=== PATIENT | female | born 1965 | race Caucasian/White ===

== ENCOUNTER 2024-09-18 17:29 | Observation (INO) | payer OTHER ==
[2024-09-18 18:54] LABS: EPI CELLS 3 /uL (0-25.1); HYALINE CASTS 0 /uL (0-3.1); URINE APPEARANCE CLEAR; URINE BACTERIA 13 /uL (0-1359); URINE BILIRUBIN NEGATIVE (NEGATIVE); URINE COLOR YELLOW; URINE GLUCOSE (UA) NEGATIVE (NEGATIVE); URINE KETONE NEGATIVE (NEGATIVE); URINE LEUK ESTERASE TRACE (NEGATIVE); URINE NITRITE NEGATIVE (NEGATIVE); URINE PROTEIN NEGATIVE (NEGATIVE); URINE RBC 7 /uL (0-23.9); URINE UROBILINOGEN 0.2 mg/dL (0.2-1.0); URINE WBC 6 /uL (0-25.8)
[2024-09-18 18:55] LABS: ABSOLUTE IMMATURE GRANULOCYTES 0.01 x10^3/uL (0.0-0.031); BASOPHILS # 0.03 x10^3/uL (0.01-0.08); RDW 13.0 % (12.3-16.6)
[2024-09-18 18:57] LABS: EOSINOPHIL % 1.2 % (0.7-5.8); EOSINOPHILS # 0.07 x10^3/uL (0.04-0.36); IMMATURE PLATELET FRACTION # 19.00 x10^3/uL; MCHC 31.6 g/dl (32.2-35.5); MEAN CELL VOLUME 93.5 fl (79.4-94.8); MEAN PLT VOLUME 11.7 fl (9.4-12.3); MONOCYTE # 0.45 x10^3/uL (0.24-0.86); MONOCYTE % 7.9 % (4.7-12.5)
[2024-09-18] MEDS: SODIUM CHLORIDE 0.9% 500 ML INFUS.BAG IV ONE (18:58)
[2024-09-18] MEDS ORDERED: ERTAPENEM SODIUM 1 GM VIAL ONE (18:59)
[2024-09-18 19:20] LABS: GLUCOSE,RANDOM 83.0 mg/dL (74-106); TOT PROT 7.7 g/dl (6.4-8.2)
[2024-09-18 19:21] LABS: CO2 27.0 mmol/L (21-32)
[2024-09-18 19:23] LABS: ALK PHOS 87.0 U/L (40-150)
[2024-09-18 19:25] LABS: CREATININE 0.79 mg/dL (0.55-1.3); SGOT/AST 29.0 U/L (5-34); SGPT/ALT 22.0 U/L (0-55)
[2024-09-18] MEDS: ERTAPENEM SODIUM 1 GM in SODIUM CHLORIDE 50 ML IVPB ONE (19:28)
[2024-09-18] MEDS ORDERED: KETOROLAC TROMETHAMINE 15 MG/ML VIAL IVPUSH PRN (20:25)
[2024-09-18] MEDS ORDERED: ONDANSETRON 4 MG/2 ML VIAL IVPUSH PRN (20:25)
[2024-09-18] MEDS: SODIUM CHLORIDE 1,000 ML IV SCH (21:45)
[2024-09-18 23:05] VITALS: BMI 25.8
[2024-09-19] MEDS: ENOXAPARIN NA (PORCINE) 40 MG/0.4 ML DISP.SYRIN SQ SCH (09:17)
[2024-09-19] MEDS: ERTAPENEM SODIUM 1 GM in SODIUM CHLORIDE 50 ML IVPB SCH (09:18)
[2024-09-19 09:24] LABS: MCHC 31.3 g/dl (32.2-35.5); MEAN CELL VOLUME 94.5 fl (79.4-94.8); MEAN PLT VOLUME 11.3 fl (9.4-12.3); RDW 13.1 % (12.3-16.6)
[2024-09-19 10:55] LABS: GLUCOSE,RANDOM 65.0 mg/dL (74-106)
[2024-09-19 10:56] LABS: TOT PROT 6.2 g/dl (6.4-8.2)
[2024-09-19 10:57] LABS: CO2 28.0 mmol/L (21-32)
[2024-09-19 11:01] LABS: CREATININE 0.71 mg/dL (0.55-1.3); SGOT/AST 23.0 U/L (5-34); SGPT/ALT 17.0 U/L (0-55)
[2024-09-19 11:41] LABS: ALK PHOS 73.0 U/L (40-150)
[2024-09-19 14:48] VITALS: BP 111/72; PULSE 65; RESP 18; TEMP 97.9
[2024-09-20 18:31] LABS: HCV DIAGNOSTIC IN-HOUSE W/RFLX NON-REACTIVE (NONREACTIVE); HIV INTERPRETATION NEGATIVE (NEGATIVE)
== END 2024-09-19 17:25 | disposition home or self-care (01) ==
LOC: JER 17:29 → INTOOBSV 18:11 → JERBED 18:11 → J6S 21:29
PROVIDERS: ADMIT Hospitalist; ATTEND Internal Medicine
PROC: 3E023GC Introduction of Other Therapeutic Substance into Muscle, Percutaneous Approach (ICD-10-PCS; principal; 2024-09-18)
PROC: 3E03329 Introduction of Other Anti-infective into Peripheral Vein, Percutaneous Approach (ICD-10-PCS; 2024-09-18)
PROC: 3E0337Z Introduction of Electrolytic and Water Balance Substance into Peripheral Vein, Percutaneous Approach (ICD-10-PCS; 2024-09-18)
DX: N39.0 Urinary tract infection, site not specified (principal); B96.20 Unspecified Escherichia coli [E. coli] as the cause of diseases classified elsewhere; R55 Syncope and collapse; U07.1 COVID-19; R53.1 Weakness; Z88.0 Allergy status to penicillin
CPT/HCPCS: 36415; 70450-TC; 71046-TC-FY; 76705-TC; 80053; 81003; 83735; 84439; 84443; 84484; 85025; 85027; 85610; 85651; 85730; 86038; 86803; 86850; 86900; 86901; 87040; 87086; 87389; 87637-QW; 93005; 93010; 93306-TC; 96361; 96365; 96366; 96372; 99285-25; G0378